=== PATIENT | female | born 1955 | race Caucasian/White ===

== ENCOUNTER → 2017-05-30 | Outpatient (CLI) | payer BC ==
[~2017-05-30] MED LIST: ADV100/50 INH; AML5 PO; ASPI-1471 PO; CLIN300C99 PO; COM14R INH; DULERAPT INH; FENO145T PO; FEXO180T74 PO; FLUT16SP19 NS; GUALA600 PO; HYDR-385 PO; LACT460C3 PO; LEVO25TA61 PO; METH4TAB63 PO; MONT5TAB15 PO; MOX400 PO; NIAC100040 PO; VENL150C61 PO
[2017-05-30 15:28] LABS: PLATELET COUNT, AUTOMATED 303 K/uL (150-450)
--- NOTE | 2017-05-30 15:32 | EKG ---
FAC[facility] PATIENT NAME: ZAFAR PEARSON : [id number] MR: [id number] V: [id number] EXAM DATE: ORDERING PHYSICIAN: SAM DAS TECHNOLOGIST: HALLE Caraballo Reason : PREOP Blood Pressure : / mmHG Vent. Rate : 087 BPM Atrial Rate : 087 BPM P-R Int : 146 ms QRS Dur : 078 ms QT Int : 368 ms P-R-T Axes : 071 083 083 degrees QTc Int : 442 ms Sinus rhythm Nonspecific ST-T findings in anterior leads No previous ECGs available Confirmed by JOSUE CAMARILLO ([id number]) on 05/30/2017 7:44:13 PM Referred By: PIPPA Confirmed By:JOSUE CAMARILLO
== END ==
LOC: LAB 14:59
PROVIDERS: ATTEND Orthopaedic Surgery Hand Surgery
DX: Z01.810 Encounter for preprocedural cardiovascular examination (principal); Z01.812 Encounter for preprocedural laboratory examination; I10 Essential (primary) hypertension; M19.90 Unspecified osteoarthritis, unspecified site; Z86.711 Personal history of pulmonary embolism; J45.909 Unspecified asthma, uncomplicated; E07.9 Disorder of thyroid, unspecified; F32.9 Major depressive disorder, single episode, unspecified
CPT/HCPCS: 36415; 82040; 82247; 82310; 82374; 82435; 82565; 82947; 84075; 84132; 84155; 84295; 84450; 84460; 84520; 85025; 93005

== ENCOUNTER 2017-06-01 02:40 | Day surgery (SDC) | payer BC ==
[~2017-06-01] VITALS: Ht 170.2 cm; Wt 112.0 kg
[~2017-06-01 02:40] MED LIST changes: -CLIN300C99 PO; -FENO145T PO; +FENO145T36 PO; -HYDR-385 PO
[2017-06-01 13:52] VITALS: BP 133/56
[2017-06-01] MEDS ORDERED: CLINDAMYCIN(*) 600 MG/NS 50 ML 50 ML IVPB ONE (14:30)
[2017-06-01] MEDS ORDERED: FAMOTIDINE 20 MG TAB PO ONE (14:30)
[2017-06-01] MEDS ORDERED: LIDOCAINE/SOD BICARB 8.4% SYR ID ONE (14:30)
[2017-06-01] MEDS ORDERED: NORMOSOL R SOLN(*) 1000 ML BAG 1,000 ML IV PRN (14:30)
[2017-06-01] MEDS ORDERED: MIDAZOLAM 2 MG/2 ML VIAL IVP PRN (14:30)
[2017-06-01] MEDS ORDERED: DEXAMETHASONE SOD 4 MG/ML VIAL ONE (14:36)
[2017-06-01] MEDS ORDERED: PROPOFOL EMUL(*) 10MG/ML 20 ML 20 ML ONE (14:36)
[2017-06-01] MEDS ORDERED: fentaNYL CITR 100 MCG/2 ML AMP ONE ×3 (14:36→17:27)
[2017-06-01] MEDS ORDERED: LIDOCAINE MPF 1% 5 ML VIAL ONE (14:36)
[2017-06-01] MEDS ORDERED: ONDANSETRON 4 MG/2 ML VIAL ONE (14:36)
[2017-06-01] MEDS ORDERED: BETAMETHASONE/ACETATE 6 MG/1ML ONE (15:55)
[2017-06-01] MEDS ORDERED: LIDOCAINE 1%MDV(*)200 MG/20 ML 1 ML ONE (15:55)
[2017-06-01] MEDS ORDERED: NS 0.9% IRRIGATION 1000ML PLCT IR ONE (17:12)
[2017-06-01] MEDS ORDERED: ALBUTEROL/IPRATROPIUM 3 ML NEB NEB ONE (17:35)
[2017-06-01] MEDS ORDERED: HYDR-385 PO (17:45)
[2017-06-01] MEDS ORDERED: CLIN300C99 PO (17:46)
[2017-06-01 18:00] VITALS: BP 108/42
[2017-06-01] MEDS ORDERED: APAP/HYDROCODONE 325/5 TAB ONE (18:13)
[2017-06-01 18:18] VITALS: BP 97/58
[2017-06-01 18:28] VITALS: BP 111/53
[2017-06-01 18:39] VITALS: BP 127/76
[2017-06-01 18:40] VITALS: BP 116/74
--- NOTE | 2017-06-01 19:52 | OPERATIVE REPORT 1 ---
EVENT DATE: June 01, 2017 SURGEON: Anibal Davis MD ANESTHESIOLOGIST: Gomez Krause MD ANESTHESIA: General. FACILITY TECHNICIAN: REED Gonzalez PREOPERATIVE DIAGNOSES 1. Basal joint arthritis, right wrist. 2. Fifth metacarpal proximal phalanx fracture with impaction. 3. Fifth metacarpal base fracture with minimal displacement. POSTOPERATIVE DIAGNOSES 1. Basal joint arthritis, right wrist. 2. Fifth metacarpal proximal phalanx fracture with impaction. 3. Fifth metacarpal base fracture with minimal displacement. PROCEDURES PERFORMED 1. Assessment of fifth metacarpal base fracture, finding it to be acceptable for closed treatment. 2. Closed reduction and percutaneous pinning of fifth proximal phalanx fracture at articular surface. 3. Steroid injection at basal joint. ESTIMATED BLOOD LOSS Minimal. INTRAVENOUS FLUIDS 1100 TOURNIQUET TIME 14 minutes SPECIMENS No specimens. COMPLICATIONS No complications. IMPLANTS Two 0.035-inch K-wires. SUMMARY OF PROCEDURE The patient was brought into the operating room and placed on the OR table in the supine position with a hand table at her right side. After obtaining adequate general anesthesia, the right upper extremity was prepped and draped in the usual sterile fashion. The limb was exsanguinated, and the tourniquet was inflated to 250 mmHg. We started by effecting a closed reduction of the impacted fifth proximal phalanx. This was done by grasping the hand and the digit and shaking it a bit while pulling it in an actual distraction, and eventually the two fracture elements from one another. I also used a hemostat under the finger and flexed it over this to effect some flexion of the articular surface. With this in place, the fifth metacarpal was also assessed at its base with oblique imaging. There was no evidence of significant displacement, and I felt that this could be treated without pinning. For the proximal phalanx fracture, clearly this did require additional stability. Consequently, I pinned first from proximal to distal through the lateral margin of the proximal phalanx on its proximal surface. I then placed a second pin through the mid portion of the proximal from distal to proximal, spearing the long oblique fragment that was visible on x-ray, terminating this pin on the radial proximal aspect of the phalanx. Reduction was adequate. We then placed a 25-gauge needle into the basal joint and injected approximately 0.5 mL of steroid and lidocaine mix. She tolerated the procedure well. She was given a dry, sterile dressing. The pins were cut short with Jurgan balls applied. She was placed in a forearm-based ulnar gutter splint, including the ring and small fingers in the intrinsic-plus position. She was then awakened and transferred to the recovery area in stable condition. BRAD
== END 2017-06-01 18:00 | disposition home or self-care (01) ==
LOC: OR 02:40
PROVIDERS: ATTEND Orthopaedic Surgery Hand Surgery
DX: M13.831 Other specified arthritis, right wrist (principal); S62.316A Displaced fracture of base of fifth metacarpal bone, right hand, initial encounter for closed fracture; S62.646A Nondisplaced fracture of proximal phalanx of right little finger, initial encounter for closed fracture; W18.30XA Fall on same level, unspecified, initial encounter
CPT/HCPCS: 26605; 26727; 76000; 94640; 94667; C1713; J0702; J1100; J2001; J2405; J2704; J3010; J3490; J7620

== ENCOUNTER 2017-09-07 00:55 | Day surgery (SDC) | payer BC ==
[~2017-09-07] VITALS: Ht 170.2 cm; Wt 112.5 kg
[~2017-09-07 00:55] MED LIST changes: +CLIN300C99 PO; +HYDR-385 PO
[2017-09-07 08:04] VITALS: BP 120/78
[2017-09-07] MEDS ORDERED: fentaNYL CITR 250 MCG/5 ML AMP ONE (08:23)
[2017-09-07] MEDS ORDERED: LIDOCAINE 2% IV 100 MG/5ML SYR ONE (08:24)
[2017-09-07] MEDS ORDERED: PROPOFOL EMUL(*) 10MG/ML 20 ML 20 ML ONE (08:24)
[2017-09-07] MEDS ORDERED: ROPIVACAINE 0.2% 20 ML VIAL ONE ×2 (09:13→09:23)
[2017-09-07] MEDS ORDERED: BACITRACIN OINT 15 GM TUBE TP ONE (09:13)
[2017-09-07] MEDS ORDERED: DEXAMETHASONE SOD PHOS 10MG/ML ONE (09:23)
[2017-09-07] MEDS ORDERED: ROPIVACAINE 0.5% 20 ML VIAL ONE (09:23)
[2017-09-07] MEDS ORDERED: ePHEDrine 25 MG/5 ML DISP.SYR IVP ONE (11:00)
[2017-09-07] MEDS ORDERED: EPINEPHrine HCL 30 MG/30 ML ONE ×2 (11:00)
[2017-09-07] MEDS ORDERED: ceFAZolin(*) 2GM/D5W 50ML 50 ML IVPB ONE (11:50)
[2017-09-07] MEDS ORDERED: FAMOTIDINE 20 MG TAB PO ONE (11:50)
[2017-09-07] MEDS ORDERED: MIDAZOLAM 2 MG/2 ML VIAL IVP PRN (11:50)
[2017-09-07] MEDS ORDERED: LIDOCAINE/SOD BICARB 8.4% SYR ID ONE (11:50)
[2017-09-07] MEDS ORDERED: NORMOSOL R SOLN(*) 1000 ML BAG 1,000 ML IV PRN (11:50)
[2017-09-07] MEDS ORDERED: ONDANSETRON 4 MG/2 ML VIAL ONE (11:58)
[2017-09-07] MEDS ORDERED: fentaNYL CITR 100 MCG/2 ML AMP ONE (12:33)
[2017-09-07] MEDS ORDERED: ROPIVACAINE 0.2% 400 MG/200ML 250 ML CONINFUS ONE (12:45)
[2017-09-07] MEDS ORDERED: HYDR-385 PO (12:46)
[2017-09-07] MEDS ORDERED: CEPH500T7 PO (12:47)
[2017-09-07 13:09] VITALS: BP 87/57
[2017-09-07 13:23] VITALS: BP 95/51
[2017-09-07 13:36] VITALS: BP 117/62
[2017-09-07 13:40] VITALS: BP 110/69
[2017-09-07] MEDS ORDERED: APAP/HYDROCODONE 325/5 TAB ONE (13:47)
--- NOTE | 2017-09-08 13:53 | OPERATIVE REPORT 1 ---
EVENT DATE: September 07, 2017 SURGEON: Anibal Davis MD ANESTHESIOLOGIST: Jason Cardona MD ANESTHESIA: General plus supraclavicular block. (Indwelling catheter was applied.) CUSHION BUILDER: Juanpablo Caruso PA-C PREOPERATIVE DIAGNOSIS Reflex sympathetic dystrophy with significant stiffness in right hand status post relatively minor fracture of proximal phalanx at small finger associated with pinning. POSTOPERATIVE DIAGNOSES Reflex sympathetic dystrophy with significant stiffness in right hand status post relatively minor fracture of proximal phalanx at small finger associated with pinning with extensive adhesions between tendon and underlying soft tissue as well as in the joints. PROCEDURES PERFORMED 1. Closed manipulation of the right index, long, and ring fingers to include metacarpophalangeal joints, proximal interphalangeal joints, and distal interphalangeal joints. 2. Open tenolysis of extensor mechanism at small finger metacarpophalangeal joint all the way down to the terminal tendon insertion. 3. Open arthrotomy and collateral ligament resection at the metacarpophalangeal and proximal interphalangeal joints, but only arthrotomy at the distal interphalangeal joint and then manipulation into flexion. ESTIMATED BLOOD LOSS Minimal. INTRAVENOUS FLUIDS Crystalloid 1000, no colloid. TOURNIQUET TIME 27 SPECIMENS No specimens. COMPLICATIONS No complications. IMPLANTS USED No implants. SUMMARY OF PROCEDURE The patient was brought into the operating room and placed on the OR table in the supine position. She was given a supraclavicular block with a catheter, and this was secured. She was then given a light general. Her right upper extremity was prepped and draped in the usual sterile fashion. The purpose for the block was both to allow for postoperative manipulation with therapy as well as to minimize the risk of worsening RSD. We started with a closed manipulation. First the index, then the long, and then the ring were progressively stretched. Each joint was individually stretched for flexion and extension, and then we did composite flexion. I did feel some soft tissue tearing during the course of these activities. I was a little bit concerned about potentially inducing a proximal phalanx fracture because apparently she was susceptible to this given the fact that she broke her phalanx initially. It did not appear that any of these were problematic on viewing this with an x- ray. I was able to get full motion. We then directed our attention to the small finger. Here, I certainly did not want to do a closed manipulation as I felt it was quite likely that we would end up tearing the terminal tendon and/ or the central slip or possibly causing the fracture to be recreated. Consequently, I made a mid axial approach on the ulnar side extending from just above the MP joint down to the middle portion of the distal phalanx. This was dissected through the skin and subcutaneous tissue to expose the extensor mechanism. Proximally, the extensor mechanism was fully freed up from the skin , and this was taken all the way down to the terminal tendon, and then we made an incision in the mid portion of the extensor prakash. This allowed access with a hand Excelsior to separate away the extensor mechanism from the underlying capsule. Once this was fully freed up, the capsule was incised, and we tried manipulating the MP joint under direct vision, but it was quite stiff. Consequently, I used a baby [place] blade to progressively free up the collateral ligaments. I would always do a little bit of freeing and then a manipulation. I would continue to do this until we got at least 95 degrees. I then used a Excelsior to free up the retrocondylar recess and then moved on to the next joint. For the PIP joint, we incised along the lateral band and exposed the joint, taking care to leave the central slip intact. Here again, I was able to use a baby [place] blade to free up a bit of the collateral ligament, especially ulnarly, and I was able to get her to about 100 degrees. We then went on to the terminal tendon. Here, no formal collateral recession was required. I just did an arthrotomy dorsally, and that allowed for adequate flexion. We were able to get full composite flexion of the digit when this was complete. The wound was irrigated, after which we repaired the extensor prakash proximally, but we left the incision along the lateral band laterally because it did not look like this tissue would actually hold suture anyway. Furthermore , when testing and in full flexion and extension under direct vision, the tissue did not subluxate in any irregular manner. The wound was irrigated one more time. The tourniquet was deflated. Bipolar cautery was used for hemostasis, followed by a fairly tight closure using nylon. I say fairly tight because the dressing would be removed frequently to do physical therapy starting today. I have asked her therapist to work on the finger using sterile technique until the wound is closed, and subsequent to that, standard therapy approach can be undertaken. The block will be effective for approximately 72 hours. MTDD
== END 2017-09-07 13:05 | disposition home or self-care (01) ==
LOC: OR 00:55
PROVIDERS: ATTEND Orthopaedic Surgery Hand Surgery
DX: G90.511 Complex regional pain syndrome I of right upper limb (principal); M24.641 Ankylosis, right hand
CPT/HCPCS: 26340; 26445; 26520; 26525; 76942; A4565; J0171; J1100; J2001; J2250; J2405; J2704; J2795; J3010; J0690

== ENCOUNTER 2017-12-14 01:43 | Day surgery (SDC) | payer BC ==
[~2017-12-14] VITALS: Ht 168.9 cm; Wt 111.6 kg
[2017-12-14] VITALS (9 sets, daily range): BP systolic 110–134; BP diastolic 49–84
[~2017-12-14 01:43] MED LIST changes: +CEPH500T7 PO; +DICY10AM2 IM; +DICY10CA11 PO
[2017-12-14] MEDS ORDERED: metroNIDAZOLE* 500MG/100ML BAG 100 ML IVPB ONE (13:00)
[2017-12-14] MEDS ORDERED: ACETAMINOPHEN 500 MG TAB PO ONE (13:00)
[2017-12-14] MEDS ORDERED: LIDOCAINE/SOD BICARB 8.4% SYR ID ONE (13:00)
[2017-12-14] MEDS ORDERED: ENOXAPARIN 40 MG/0.4ML SYR SC ONE (13:00)
[2017-12-14] MEDS ORDERED: PREGABALIN 150 MG CAPSULE PO ONE (13:00)
[2017-12-14] MEDS ORDERED: FAMOTIDINE 20 MG TAB PO ONE (13:00)
[2017-12-14] MEDS ORDERED: NORMOSOL R SOLN(*) 1000 ML BAG 1,000 ML IV PRN (13:00)
[2017-12-14] MEDS ORDERED: MIDAZOLAM 2 MG/2 ML VIAL IVP PRN (13:00)
[2017-12-14] MEDS ORDERED: LEVOFLOXACIN/D5W*500 MG/100 ML 100 ML IVPB ONE (13:00)
[2017-12-14] MEDS ORDERED: INDOCYANINE GREEN 25 MG VIAL IVP ONE (13:00)
[2017-12-14] MEDS ORDERED: fentaNYL CITR 250 MCG/5 ML AMP ONE (13:29)
[2017-12-14] MEDS ORDERED: LIDOCAINE MPF 1% 5 ML VIAL ONE (13:30)
[2017-12-14] MEDS ORDERED: PROPOFOL EMUL(*) 10MG/ML 20 ML 20 ML ONE (13:30)
[2017-12-14] MEDS ORDERED: ROPIVACAINE 0.5% 20 ML VIAL ONE (13:50)
[2017-12-14] MEDS ORDERED: DEXAMETHASONE SOD 4 MG/ML VIAL ONE (14:31)
[2017-12-14] MEDS ORDERED: ONDANSETRON 4 MG/2 ML VIAL ONE (14:33)
[2017-12-14] MEDS ORDERED: KETAMINE HCL 200 MG/20 ML MDV ONE (14:58)
[2017-12-14] MEDS ORDERED: SUGAMMADEX SOD 200 MG/2 ML SDV ONE (14:59)
--- NOTE | 2017-12-14 16:25 | Short(Outpt) Discharge Summary ---
Discharge Summary Reason for Hosp/Final Diag: (1) Cholelithiasis Status: Acute Hospital Course & Plan: Robotic cholecystectomy completed without problems. (2) Biliary colic Status: Acute Departure Discharge to: Home, Self Care Discharge Instructions Home Meds Active Scripts Dicyclomine Hcl (DICYCLOMINE HCL) 10 Mg Capsule, 10 MG PO QID for 7 Days, #30 CAPSULE Prov:MIKAEL SHAFFER MD 12/10/17 Reported Medications Dicyclomine Hcl (BENTYL) 10 Mg/1 Ml Ampul, 10 MG IM 3-4XD 12/12/17 Lactobacillus Acidophilus (FLORAJEN) 460 Mg Capsule, 460 MG PO, CAPSULE 05/30/17 Fenofibrate Nanocrystallized (FENOFIBRATE) 145 Mg Tablet, 145 MG PO HS 05/30/17 Aspirin (ASPIR 81) 81 Mg Tablet.dr, 81 MG PO QDAY, TAB 05/30/17 Fluticasone Prop 50 Mcg Ns (FLONASE 50 MCG NS) 16 Gm [place].susp, 2 SPRAYS NS QDAY, BOT 05/30/17 Mometasone/Formoterol (DULERA 200 MCG/5 MCG INHALER) 13 Gm Inh, 13 GM INH BID, INH 05/30/17 Levothyroxine Sodium (LEVOTHYROXINE SODIUM) 25 Mcg Tablet, 25 MCG PO QDAY 05/30/17 Niacin (Niaspan) 1,000 Mg Tablet.sa, 1000 MG PO HS 08/22/11 Amlodipine Besylate (Norvasc) 5 Mg Tab, 5 MG PO DAILY 08/22/11 Montelukast Sodium (Singulair) 5 Mg Tab.chew, 10 MG PO DAILY 08/22/11 Venlafaxine Hcl (Effexor Xr) 150 Mg Cap.sr.24h, 150 MG PO DAILY 08/22/11 Fexofenadine Hcl (Natalia) 180 Mg Tablet, 180 MG PO DAILY 08/22/11 Discontinued Reported Medications Cephalexin 500 Mg Tab (KEFLEX 500 MG TAB) 500 Mg Tablet, 500 MG PO Q6H, #12 TAB 09/07/17 Hydrocodone Bit/Acetaminophen (HYDROCODON-ACETAMINOPHEN 5-325) 1 Each Tablet, 1- 2 EACH PO Q4-6H PRN for PAIN, #40 TAB 09/07/17 Follow up Referrals: General Surgery - 10/02/18 @ Surgery, General with CRISTIAN ERNANDEZ MD You have a follow up appointment scheduled with Dr. Ernandez on 01/01/18, at 4:00pm. Diet: Regular Activity: As Tolerated Special Instructions: You may remove the white surgical dressings on 12/16/17, then you can shower. After showering, leave the incisions open to air but leave the steristrips in place until they fall off on their own. Do not immerse the incisions for 2 weeks. Problem Qualifiers (1) Cholelithiasis: Cholelithiasis location: gallbladder Cholecystitis presence: without cholecystitis Biliary obstruction: without biliary obstruction Qualified Codes: K80.20 - Calculus of gallbladder without cholecystitis without obstruction CRISTIAN ERNANDEZ MD Dec 14, 2017 16:25
--- NOTE | 2017-12-14 16:30 | Post Operative Progress Note ---
Post Operative Progress Note Date: Dec 14, 2017 Time: 16:25 Surgeon: Tanner Dictation number: [id number] Anesthesia: GETA by Dr. Cardona Pre-Op Diagnosis: Symptomatic gallstones Post-Op Diagnosis: JIM Findings: C/W dx Procedure(s): Robotic cholecystectomy Specimen Removed:(May be N/A): GB and contents Complications: None Fluids: See anesthesia record Estimated Blood Loss: Minimal Date OP Note Dictated: Dec 14, 2017 Time OP Note Dictated: 16:26 CRISTIAN ERNANDEZ MD Dec 14, 2017 16:30
--- NOTE | 2017-12-14 17:59 | OPERATIVE REPORT 1 ---
EVENT DATE: December 14, 2017 SURGEON: Timothy Hart MD ANESTHESIOLOGIST: Jason Cardona MD ANESTHESIA: General endotracheal anesthesia. PREOPERATIVE DIAGNOSIS Symptomatic gallstones. POSTOPERATIVE DIAGNOSIS Symptomatic gallstones. PROCEDURE PERFORMED Robotic cholecystectomy. COMPLICATIONS None. CONDITION Stable. BLOOD LOSS Minimal. SPECIMENS Gallbladder and contents. INDICATIONS This is a 62-year-old female who was referred to my office from the Emergency Room after having presented with postprandial right upper quadrant abdominal pain. She had a right upper quadrant ultrasound which revealed gallstones. I saw her a couple of days after the ER visit and consented her for a cholecystectomy robotically. DESCRIPTION OF PROCEDURE The patient was brought to the operating room and placed supine on the operating table. General endotracheal anesthesia was administered, and her abdomen was prepped and draped in a sterile fashion. Timeout was completed. I injected the infraumbilical skin with 0.5% ropivacaine plain. I made a curvilinear smiley face-type incision in the infraumbilical rim and dissected down through the dermis and subcutaneous fat. I identified the midline fascia and made a vertical incision in the midline fascia. I grasped the fascial edges with Lisa clamps and then bluntly entered the peritoneal cavity with my finger. I placed two interrupted 0 Vicryl sutures transversely through the vertical fascial defect and inserted a 12 mm robotic Valery-type port through this wound and secured it into place with sutures. I insufflated the abdomen to a pressure of 15 mmHg and inserted the robotic camera into the patient's abdomen. I then placed an 8 mm port in the right mid abdomen and two 8 mm ports in the left mid abdomen and left upper quadrant. I then had the patient placed in reverse Trendelenburg and planed towards her left to the remove the viscera from the right upper quadrant. I then brought in the robot, docked it, targeted it, and then inserted the instruments. I then scrubbed out and went to the console. I grasped the fundus of the gallbladder with a ProGrasp and retracted it towards the patient's right shoulder. I then grasped the infundibulum with a Cadiere and retracted it towards the patient's right hip. I then used the hook electrocautery, divided the peritoneum overlying the infundibulum and up both the medial and lateral aspects of the gallbladder. I then stripped the peritoneum and subperitoneal contents down from the infundibulum and then dissected around the cystic duct and arteries circumferentially. I used Firefly intermittently throughout this procedure to confirm that I had appropriately identified the anatomy and that it was away from the common bile duct. I then clipped the cystic duct with three clips distally and a clip at the infundibulum-cystic duct junction and divided the duct between clips. The artery was clipped proximally and distally and divided between clips. The posterior attachments to the gallbladder were divided, from the gallbladder fossa, and then the gallbladder was placed in surgical specimen retrieval bag and removed from the abdomen through the umbilical port site. I then removed all of the robotic instruments, undocked the robot, and then scrubbed back in. I then used the camera to inspect the right upper quadrant. I had to do a little electrocautery in the gallbladder fossa before leaving the console, and so I placed some Gregor in the gallbladder fossa. I did give her 40 mg of Lovenox subcutaneously due to a previous history of PE, so that occurred postoperatively. Everything was dry, and there was no evidence of bleeding. It looked great, and so I removed the instruments, desufflated the abdomen, and removed the ports. I then closed the midline fascia with another [id number] 0 Vicryl suture and tied all three of these down with good reapproximation of the fascial edges. I then closed the skin at each port site with a 4-0 Monocryl subcuticular suture. The skin was cleaned and dried, and Steri-Strips were applied, followed by sterile surgical dressings. The patient was awakened, extubated in the operating room, and transported to the recovery room in stable condition having tolerated the procedure without any apparent problems. BRAD
== END 2017-12-14 17:00 | disposition home or self-care (01) ==
LOC: OR 01:43
PROVIDERS: ATTEND Surgery
DX: K80.80 Other cholelithiasis without obstruction (principal)
CPT/HCPCS: 47562; 88304; J1100; J1650; J1956; J2001; J2405; J2704; J2795; J3010; J3490; S2900

== ENCOUNTER → 2018-07-18 | Outpatient (CLI) | payer BC ==
--- NOTE | 2018-07-19 08:19 | RADIOLOGY IMAGING REPORT ---
FACILITY: [facility] PATIENT NAME: ZAFAR PEARSON : [id number] MR: [id number] V: [id number] EXAM DATE: [id number] ORDERING PHYSICIAN: RYLAN TRACY TECHNOLOGIST: Damari Plata PROCEDURE:BILATERAL DIGITAL SCREENING MAMMOGRAM WITH CAD ASSISTED INTERPRETATION & 3D TOMOSYNTHESIS COMPARISON:Prior mammograms 10/02/16, 09/10/14, 08/27/12. INDICATIONS:screening FINDINGS: The breasts are almost entirely fatty. The parenchymal pattern has remained stable allowing for difference in mammographic technique & patient positioning. DIAGNOSTIC CATEGORY 1--NEGATIVE. RECOMMENDATIONS: ROUTINE MAMMOGRAM AND CLINICAL EVALUATION. IMPRESSION: BIRADS 1: Negative. No significant abnormality is seen. Dictated by: Ophelia Davis M.D. on 07/18/2018 at 15:01 Transcribed by: GEOVANI on 07/18/2018 at 15:11 Approved by: Ophelia Davis M.D. on 07/19/2018 at 8:18 [facility]
== END ==
LOC: MAMO 07:11
PROVIDERS: ATTEND Physician Assistant
DX: Z12.31 Encounter for screening mammogram for malignant neoplasm of breast (principal)
CPT/HCPCS: 77063; 77067